=== PATIENT | male | born 1960 | race Caucasian/White ===

== ENCOUNTER → 2016-12-09 | Outpatient (CLI) | payer BC ==
[2016-12-09 16:09] VITALS: BP 150/101; PULSE 71; TEMP 98.2; BMI 42.7
--- NOTE | 2016-12-09 16:55 | P.HPBAR ---
Bariatric H&P - History & Physicial H&P Date: 12/09/16 History & Physicial: Visit/CC: follow up visit Patient initial contact: Initial weight: Initial weight in pounds: Height: 6 ft 5 in Initial BMI: Last weight: Current weight: 163.52 kg Current weight in pounds: 360.50 Current BMI: 42.7 Henning body weight (based on NIH guidelines): 94.347 kg Excess body weight loss: The patient is a 56 year-old M who presents for Bariatric Assessment. The patient presents today for lab band follow. Patient has a known gastric prolapse. He was seen in 2011. The patient failed to follow-up. He has regained a significant amount of weight since his band was emptied. Initially he weighed 35 at the time of his LAP-BAND surgery. He went down to 265 pounds. At the time of his prolapse he weighed 265 pounds. He now weighs 360 pounds. Patient wishes to have his band removed and convert to sleeve gastrectomy. Past Medical History History of Any Multi-Drug Resistant Organisms: None Reported Smoking Status: Never smoker Surgical - Exam Vital Signs Temp Pulse BP 98.2 F 71 150/101 12/09/16 16:04 12/09/16 16:04 12/09/16 16:04 - General well developed, no distress - Eyes PERRL - ENT normal pinna - Neck no masses - Respiratory normal expansion - Cardiovascular Rhythm: regular - Abdomen Abdomen: soft, non tender Bariatric Assessment & Plan Plan: Patient and myself elected discussion regarding sleeve gastrectomy. We went over the risks and benefits of procedure. Patient be scheduled for removal of his LAP-BAND due to gastric prolapse. We will then attempt to obtain insurance authorization for sleeve gastrectomy. Bariatric Checklist Checklist: Plan: Checklist: EGD: 1. Hiatal hernia: 2. H. Pylori: HgbA1c: Vitamin D: Smoking: Never smoker Primary care physician referral: olinda olmstead Psychiatry clearance: Cardiology clearance: Sleep study: Diet journal: VTE risk score: VTE risk level: Rehab needs at discharge:
== END | disposition home or self-care (01) ==
LOC: BARWHC3 13:06
PROVIDERS: ATTEND Surgery
DX: E66.01 Morbid (severe) obesity due to excess calories (principal)
CPT/HCPCS: 99211

== ENCOUNTER → 2016-12-20 | Outpatient (CLI) | payer BC ==
[2016-12-20 07:15] LABS: EKG EKG PERFORMED
[2016-12-20 07:48] LABS: ALT 39 U/L (21-72); AST 19 U/L (17-59); Alkaline Phosphatase 75 U/L (38-126); Anion Gap 12 mmol/L; Blood Urea Nitrogen 25 mg/dL (9-20); Calcium 9.3 mg/dL (8.4-10.2); Carbon Dioxide 27 mmol/L (22-30); Chloride 102 mmol/L (98-107); Glucose 208 mg/dL (74-99); Non-African American GFR(MDRD) 56 (>60 ml/min/1.73 sqM); Potassium 4.6 mmol/L (3.5-5.1); Sodium 141 mmol/L (137-145); Total Protein 7.7 g/dL (6.3-8.2)
[2016-12-20 07:50] LABS: Basophils % (A) 1 %; CH 31.1; CHCM 33.4; Eosinophils # (A) 0.3 k/uL (0-0.7); Eosinophils % (A) 4 %; HCT 42.1 % (39.0-53.0); HDW 2.32; Luc # (Auto) 0.11; Luc % (Auto) 2; Lymphocytes # (A) 2.2 k/uL (1.0-4.8); Lymphocytes % (A) 33 %; MCH 31.2 pg (25.0-35.0); MCHC 33.3 g/dL (31.0-37.0); MCV 93.6 fL (80.0-100.0); Mean Platelet Volume 8.3; Monocytes # (A) 0.5 k/uL (0-1.0); Monocytes % (A) 7 %; Neutrophils # (A) 3.7 k/uL (1.3-7.7); Neutrophils % (A) 54 %; RDW 13.5 % (11.5-15.5); WBC 6.8 k/uL (3.8-10.6); WBC (Perox) 7.16
== END | disposition home or self-care (01) ==
LOC: LABPAT 06:59
PROVIDERS: ATTEND Surgery
DX: Z01.810 Encounter for preprocedural cardiovascular examination (principal)
CPT/HCPCS: 80053; 85025; 93005

== ENCOUNTER 2016-12-23 09:31 | Day surgery (SDC) | payer BC ==
[2016-12-19 09:02] VITALS: BMI 41.5
[~2016-12-23 09:31] MED LIST: HYDROmorphone 1 MG/ML 1 ML SYRINGE IVP PRN; LACTATED RINGERS 1,000 ML IV SCH; MIDAZOLAM 2 MG/2 ML VIAL IV PRN; ONDANSETRON 4 MG/2 ML VIAL IVP ONE; SCOPOLAMINE 1.5MG/72HR PATCH TRANSDERM ONE; ceFAZolin 3 GM in SODIUM CHLORIDE 0.9% 100 ML IVPB ONE
[2016-12-23] MEDS ORDERED: LIDOCAINE 1% 20 ML VIAL (10MG/ML) FOR IV START INTRADERMA ONE (10:16)
--- NOTE | 2016-12-23 10:32 | P.GSHP ---
History of Present Illness H&P Date: 12/23/16 Chief Complaint: GERD, dysphagia gastric prolapse of LAP-BAND This a 56-year-old male who had LAP-BAND surgery performed several years ago. Patient has a gastric prolapse causing GERD and dysphagia. Presents today for removal of LAP-BAND device. Past Medical History Past Medical History: Atrial Fibrillation, Diabetes Mellitus, Hypertension, Sleep Apnea/CPAP/BIPAP Additional Past Medical History / Comment(s): use cpap,hx gastric prolapse History of Any Multi-Drug Resistant Organisms: MRSA Date of last positivie culture/infection: April MDRO Source:: rt chin Past Surgical History: Bariatric Surgery, Orthopedic Surgery, Tonsillectomy Additional Past Surgical History / Comment(s): LEFT KNEE REPLACEMENT, RIGHT HIP REPLACEMENT, LAP BAND SURGERY 2003 Past Anesthesia/Blood Transfusion Reactions: No Reported Reaction Past Psychological History: No Psychological Hx Reported Smoking Status: Never smoker Past Alcohol Use History: None Reported Past Drug Use History: None Reported - Past Family History Mother Family Medical History: No Reported History Father Family Medical History: Cancer Additional Family Medical History / Comment(s): lung Medications and Allergies Home Medications Medication Instructions Recorded Confirmed Type Carvedilol 25 mg PO BID 12/10/16 12/19/16 History Insulin Glargine [Lantus] 28 unit SQ HS 12/10/16 12/23/16 History Levothyroxine Sodium [Synthroid] 75 mcg PO QAM 12/10/16 12/19/16 History Losartan/Hydrochlorothiazide 1 tab PO QAM 12/10/16 12/19/16 History [Losartan-Hctz 100-12.5 mg Tab] Rivaroxaban [Xarelto] 20 mg PO DAILY 12/10/16 12/19/16 History Simvastatin [Zocor] 20 mg PO BID 12/10/16 12/23/16 History metFORMIN HCL [Glucophage] 500 mg PO BID 12/10/16 12/19/16 History Allergies Allergy/AdvReac Type Severity Reaction Status Date / Time No Known Allergies Allergy Verified 12/19/16 08:53 Surgical - Exam Vital Signs Temp Pulse Resp BP Pulse Ox 97.9 F 81 18 135/84 98 12/23/16 10:22 12/23/16 10:22 12/23/16 10:22 12/23/16 10:22 12/23/16 10:22 - General well developed, no distress - Eyes PERRL - ENT normal pinna - Neck no masses - Respiratory normal expansion - Cardiovascular Rhythm: regular - Abdomen Abdomen: soft, non tender Assessment and Plan Plan: GERD, dysphagia gastric prolapse. We'll perform laparoscopic removal of LAP- BAND system.
[2016-12-23 10:33] LABS: Glucose,Whole Blood 125 mg/dL (75-99)
[2016-12-23] MEDS ORDERED: ENOXAPARIN 40 MG/0.4 ML SYRINGE SQ ONE (10:35)
[2016-12-23] MEDS ORDERED: ceFAZolin 2 GM in SODIUM CHLORIDE 0.9% 100 ML IVPB ONE (10:36)
[2016-12-23] MEDS ORDERED: SUCCINYLCHOLINE CHLORIDE VIAL 200 MG/10 ML VIAL IV ONE (11:09)
[2016-12-23] MEDS ORDERED: PROPOFOL 10 MG/ML 20 ML VIAL IV ONE (11:09)
[2016-12-23] MEDS ORDERED: GLYCOPYRROLATE 0.2 MG/ML 2 ML VIAL ONE (11:09)
[2016-12-23] MEDS ORDERED: fentaNYL (PF) 50 MCG/ML 2 ML AMP ONE (11:09)
[2016-12-23] MEDS ORDERED: ROCURONIUM BROMIDE 10 MG/ML 10 ML VIAL IV ONE (11:09)
[2016-12-23] MEDS ORDERED: ePHEDrine 50 MG/ML 1 ML AMP ONE (11:09)
[2016-12-23] MEDS ORDERED: NEOSTIGMINE 1 MG/ML 10 ML VIAL ONE (11:09)
[2016-12-23] MEDS ORDERED: LIDOCAINE 1% INJ 10MG/ML (20 ML MDV) ONE (11:09)
[2016-12-23] MEDS ORDERED: MIDAZOLAM 2 MG/2 ML VIAL ONE (11:09)
[2016-12-23] MEDS ORDERED: BUPIVACAIN-EPI 0.25%-1:200,000 30 ML VIAL SQ ONE (11:36)
[2016-12-23] MEDS ORDERED: LACTATED RINGERS 1,000 ML IV ONE (11:38)
[2016-12-23 12:35] VITALS: TEMP 97
--- NOTE | 2016-12-23 12:40 | P.OP ---
Date of Procedure: 12/23/16 Preoperative Diagnosis: Gastric prolapse Postoperative Diagnosis: Dysphagia Gastric prolapse Procedure(s) Performed: Laparoscopic removal of LAP-BAND system Anesthesia: SNOW Surgeon: Vernon Salomon Estimated Blood Loss (ml): 5 Pathology: none sent Condition: stable Disposition: PACU Description of Procedure: The patient was placed in the operative table in supine position. He received general anesthesia. His abdomen was prepped and draped after he is placed in dorsal 5 position. The skin incision sites were anesthetized 1% local Xylocaine. The skin was incised and the port site and then using blunt and sharp dissection with cautery the LAP-BAND port was dissected free from the subcu tissues. Next using a 5 mm blade less trocar under direct visualization panel cavity was entered. Upon entering pelvic cavity the abdomen was insufflated with CO2. After adequate insufflation the laparoscope placed back the pleural cavity. Next a fibrillar trocar is placed left epigastric and left lateral lobe liver was retracted. The initial fibrillar trocar was exchanged for a 15 mm trocar. A 5 mm trochars placed in the left epigastric. And then another 5 mm trochars placed the right lateral and left lateral position. The adhesions Dorie device were lysed using electrocautery and sharp dissection. The anterior gastric wall plication was taken down with sharp dissection. The lap band buckle was then dissected free and then LAP-BAND was cut and withdrawn from around stomach. The LAP-BAND device was removed and Brought out through the 15 mm trocar site. Some was inspected. There is no incision any injury or bleeding to the stomach. The trochars withdrawn. The skin incision sites are closed with 3-0 Monocryl suture. Dermabond was applied. Patient top procedure well and sent to recovery in stable condition.
[2016-12-23 12:47] LABS: Glucose,Whole Blood 117 mg/dL (75-99)
[2016-12-23] MEDS ORDERED: HYDROcodone/APAP 7.5-325MG 1 EACH TAB PO ONE (13:24)
[2016-12-23 13:58] VITALS: RESP 16
[2016-12-23 14:01] VITALS: BP 116/59; PULSE 68
== END 2016-12-23 14:33 | disposition home or self-care (01) ==
LOC: OR 09:31
PROVIDERS: ATTEND Surgery
DX: K95.09 Other complications of gastric band procedure (principal); R13.10 Dysphagia, unspecified; K21.9 Gastro-esophageal reflux disease without esophagitis; I48.91 Unspecified atrial fibrillation; I10 Essential (primary) hypertension; E11.9 Type 2 diabetes mellitus without complications; E07.9 Disorder of thyroid, unspecified; G47.33 Obstructive sleep apnea (adult) (pediatric); Z99.89 Dependence on other enabling machines and devices; Z79.01 Long term (current) use of anticoagulants; Z79.84 Long term (current) use of oral hypoglycemic drugs; Z79.4 Long term (current) use of insulin; Z79.899 Other long term (current) drug therapy; Z86.14 Personal history of Methicillin resistant Staphylococcus aureus infection
CPT/HCPCS: 43772; J2250; J0330; J2710; J0690; J2405; J2001; J1650; J3010; J2704

== ENCOUNTER → 2016-12-30 | Outpatient (CLI) | payer BC ==
[2016-12-30 15:09] VITALS: BP 169/88; PULSE 85; RESP 16; TEMP 98.2; BMI 43.4
--- NOTE | 2016-12-30 16:34 | P.HPBAR ---
Bariatric H&P - History & Physicial H&P Date: 12/30/16 History & Physicial: Visit/CC: Band Removal/Pursuing sleeve Patient initial contact: Initial weight: 174.633 kg Initial weight in pounds: 385.00 Height: 6 ft 5 in Initial BMI: 45.6 Last weight: Current weight: 166.468 kg Current weight in pounds: 367.00 Current BMI: 43.4 Warren body weight (based on NIH guidelines): 94.347 kg Excess body weight loss: 10.1% The patient is a 56 year-old M who presents for Bariatric Assessment. Patient is status post removal of LAP-BAND system. He wishes to be scheduled for sleeve gastrectomy. The patient states his GERD and dysphagia improved since her band was removed. He's had an issue with gastric prolapse the past. Past Medical History Past Medical History: Atrial Fibrillation, Diabetes Mellitus, Hypertension, Sleep Apnea/CPAP/BIPAP Additional Past Medical History / Comment(s): use cpap,hx gastric prolapse History of Any Multi-Drug Resistant Organisms: MRSA Year Discovered:: April MDRO Source:: rt pace Past Surgical History: Bariatric Surgery, Orthopedic Surgery, Tonsillectomy Additional Past Surgical History / Comment(s): LEFT KNEE REPLACEMENT, RIGHT HIP REPLACEMENT, LAP BAND SURGERY 2003 Past Anesthesia/Blood Transfusion Reactions: No Reported Reaction Past Psychological History: No Psychological Hx Reported Smoking Status: Never smoker Past Alcohol Use History: None Reported Past Drug Use History: None Reported - Past Family History Mother Family Medical History: No Reported History Father Family Medical History: Cancer Additional Family Medical History / Comment(s): lung Surgical - Exam Vital Signs Temp Pulse Resp BP 98.2 F 85 16 169/88 12/30/16 15:05 12/30/16 15:05 12/30/16 15:05 12/30/16 15:05 - General well developed, no distress - Eyes PERRL - ENT normal pinna - Neck no masses - Respiratory normal expansion - Cardiovascular Rhythm: regular - Abdomen Abdomen: soft, non tender Bariatric Assessment & Plan Plan: Morbid obesity. Patient will be scheduled for sleeve gastrectomy. We went over the risks and benefits of the procedure. We did discuss the risk of gastric staple line disruption. Patient is aware that if this happens he will need to have a surgical drain placed as well a receiving TPN. Patient will be scheduled for gastric sleeve surgery sometime next month. Bariatric Checklist Checklist: Plan: Checklist: EGD: 1. Hiatal hernia: 2. H. Pylori: HgbA1c: Vitamin D: Smoking: Never smoker Primary care physician referral: dr olmstead Psychiatry clearance: Cardiology clearance: Sleep study: Diet journal: VTE risk score: VTE risk level: Rehab needs at discharge:
== END | disposition home or self-care (01) ==
LOC: BARWHC3 14:13
PROVIDERS: ATTEND Surgery
DX: Z48.815 Encounter for surgical aftercare following surgery on the digestive system (principal); E66.01 Morbid (severe) obesity due to excess calories; Z68.41 Body mass index [BMI] 40.0-44.9, adult; Z98.84 Bariatric surgery status; K21.9 Gastro-esophageal reflux disease without esophagitis; R13.10 Dysphagia, unspecified; G47.33 Obstructive sleep apnea (adult) (pediatric); Z99.89 Dependence on other enabling machines and devices; Z86.14 Personal history of Methicillin resistant Staphylococcus aureus infection
CPT/HCPCS: 99211

== ENCOUNTER 2017-01-03 07:12 | Day surgery (SDC) | payer BC ==
[2017-01-02 08:16] VITALS: BMI 40.3
[~2017-01-03 07:12] MED LIST changes: -HYDROmorphone 1 MG/ML 1 ML SYRINGE IVP PRN; +LACTATED RINGERS 1,000 ML IV ONE; -MIDAZOLAM 2 MG/2 ML VIAL IV PRN; -ONDANSETRON 4 MG/2 ML VIAL IVP ONE; -SCOPOLAMINE 1.5MG/72HR PATCH TRANSDERM ONE; -ceFAZolin 3 GM in SODIUM CHLORIDE 0.9% 100 ML IVPB ONE
[2017-01-03 07:32] VITALS: RESP 16; TEMP 97
[2017-01-03 07:35] LABS: Glucose,Whole Blood 140 mg/dL (75-99)
[2017-01-03] MEDS ORDERED: PROPOFOL 10 MG/ML 20 ML VIAL IV ONE ×2 (07:43→08:29)
[2017-01-03] MEDS ORDERED: LIDOCAINE 1% INJ 10MG/ML (20 ML MDV) ONE (07:43)
--- NOTE | 2017-01-03 07:51 | P.GSHP ---
History of Present Illness H&P Date: 01/03/17 Chief Complaint: History of GERD This is a 56-year-old male who presents today for EGD. Patient has history of GERD and gastric prolapse. His LAP-BAND has been removed. He is undergoing workup for sleeve gastrectomy. Patient presents today for EGD. - Constitutional Constitutional: Reports as per HPI Past Medical History Past Medical History: Atrial Fibrillation, Diabetes Mellitus, Hypertension, Sleep Apnea/CPAP/BIPAP Additional Past Medical History / Comment(s): use cpap,hx gastric prolapse History of Any Multi-Drug Resistant Organisms: MRSA Date of last positivie culture/infection: April MDRO Source:: rt chin Past Surgical History: Bariatric Surgery, Orthopedic Surgery, Tonsillectomy Additional Past Surgical History / Comment(s): LEFT KNEE REPLACEMENT, RIGHT HIP REPLACEMENT, LAP BAND SURGERY 2003, LAP BAND REMOVAL Past Anesthesia/Blood Transfusion Reactions: No Reported Reaction Past Psychological History: No Psychological Hx Reported Smoking Status: Never smoker Past Alcohol Use History: None Reported Past Drug Use History: None Reported - Past Family History Mother Family Medical History: No Reported History Father Family Medical History: Cancer Additional Family Medical History / Comment(s): lung Medications and Allergies Home Medications Medication Instructions Recorded Confirmed Type Carvedilol 25 mg PO BID 12/10/16 01/03/17 History Insulin Glargine [Lantus] 28 unit SQ HS 12/10/16 01/03/17 History Levothyroxine Sodium [Synthroid] 75 mcg PO QAM 12/10/16 01/03/17 History Losartan/Hydrochlorothiazide 1 tab PO QAM 12/10/16 01/03/17 History [Losartan-Hctz 100-12.5 mg Tab] Rivaroxaban [Xarelto] 20 mg PO DAILY 12/10/16 01/02/17 History Simvastatin [Zocor] 20 mg PO BID 12/10/16 01/03/17 History metFORMIN HCL [Glucophage] 500 mg PO BID 12/10/16 01/03/17 History Allergies Allergy/AdvReac Type Severity Reaction Status Date / Time No Known Allergies Allergy Verified 01/03/17 07:24 Surgical - Exam Vital Signs Temp Pulse Resp BP Pulse Ox 97.0 F L 77 16 122/79 95 01/03/17 07:27 01/03/17 07:27 01/03/17 07:27 01/03/17 07:27 01/03/17 07:27 - General well developed, no distress - Eyes PERRL - ENT normal pinna - Neck no masses - Respiratory normal expansion - Cardiovascular Rhythm: regular - Abdomen Abdomen: soft, non tender Results - Labs Abnormal Lab Results - Last 24 Hours (Table) 01/03/17 Range/Units 07:34 POC Glucose (mg/dL) 140 H (75-99) mg/dL Assessment and Plan Plan: GERD. We'll perform EGD.
--- NOTE | 2017-01-03 08:01 | P.OP ---
Date of Procedure: 01/03/17 Preoperative Diagnosis: GERD Postoperative Diagnosis: Gastritis Procedure(s) Performed: The patient's placed on the endoscopy table in the lateral position. He received IV sedation. The gastroscope some placed oropharynx passed in the esophagus and into the stomach. Scope was then placed through the pylorus. The first and second portion of the duodenum appeared normal. The scope was then brought back the antrum and this appeared mildly inflamed. A biopsies performed. Scope was unretroflexed and remainder stomach appeared normal. GE junction was at 40 cm. The distal esophagus. Normal. The proximal esophagus. Normal. Scope was withdrawn for patient.
[2017-01-03 08:21] VITALS: BP 126/83; PULSE 78
== END 2017-01-03 08:40 | disposition home or self-care (01) ==
LOC: ORWHC2ENDO 07:12
PROVIDERS: ATTEND Surgery
DX: K21.9 Gastro-esophageal reflux disease without esophagitis (principal); K29.50 Unspecified chronic gastritis without bleeding; E11.9 Type 2 diabetes mellitus without complications; I10 Essential (primary) hypertension; I48.91 Unspecified atrial fibrillation; I49.9 Cardiac arrhythmia, unspecified; G47.33 Obstructive sleep apnea (adult) (pediatric); E66.01 Morbid (severe) obesity due to excess calories; Z79.4 Long term (current) use of insulin; Z79.01 Long term (current) use of anticoagulants; Z79.84 Long term (current) use of oral hypoglycemic drugs; Z79.899 Other long term (current) drug therapy; Z98.84 Bariatric surgery status
CPT/HCPCS: 88305; 88342; 43239; J2001; J2704

== ENCOUNTER → 2017-01-27 | Outpatient (CLI) | payer BC ==
[2017-01-27 13:08] VITALS: BMI 43.9
== END | disposition home or self-care (01) ==
LOC: BARWHC3 08:50
PROVIDERS: ATTEND Surgery
DX: Z71.3 Dietary counseling and surveillance (principal); E66.01 Morbid (severe) obesity due to excess calories; Z68.41 Body mass index [BMI] 40.0-44.9, adult
CPT/HCPCS: 97804

== ENCOUNTER → 2017-02-12 | Outpatient (CLI) | payer BC ==
[2017-02-12 07:06] LABS: EKG EKG PERFORMED
[2017-02-12 08:09] LABS: Basophils # (A) 0.1 k/uL (0-0.2); Basophils % (A) 1 %; CH 31.4; Eosinophils # (A) 0.3 k/uL (0-0.7); Eosinophils % (A) 5 %; HCT 42.2 % (39.0-53.0); HDW 2.36; HGB 13.6 gm/dL (13.0-17.5); Luc # (Auto) 0.23; Luc % (Auto) 3; Lymphocytes # (A) 2.3 k/uL (1.0-4.8); Lymphocytes % (A) 33 %; MCH 30.8 pg (25.0-35.0); MCHC 32.3 g/dL (31.0-37.0); MCV 95.6 fL (80.0-100.0); Mean Platelet Volume 7.6; Monocytes # (A) 0.4 k/uL (0-1.0); Monocytes % (A) 6 %; Neutrophils # (A) 3.6 k/uL (1.3-7.7); Neutrophils % (A) 52 %; RBC 4.41 m/uL (4.30-5.90); WBC 6.9 k/uL (3.8-10.6); WBC (Perox) 7.11
[2017-02-12 08:32] LABS: ALT 32 U/L (21-72); AST 25 U/L (17-59); Alkaline Phosphatase 71 U/L (38-126); Anion Gap 12 mmol/L; Blood Urea Nitrogen 29 mg/dL (9-20); Calcium 9.4 mg/dL (8.4-10.2); Carbon Dioxide 24 mmol/L (22-30); Chloride 105 mmol/L (98-107); Glucose 113 mg/dL (74-99); Non-African American GFR(MDRD) 44 (>60 ml/min/1.73 sqM); Phosphorous 4.2 mg/dL (2.5-4.5); Potassium 4.9 mmol/L (3.5-5.1); Sodium 141 mmol/L (137-145); Total Protein 7.7 g/dL (6.3-8.2)
== END ==
LOC: LABPAT 06:48
PROVIDERS: ATTEND Surgery
DX: Z01.818 Encounter for other preprocedural examination (principal)
CPT/HCPCS: 80053; 84100; 85025; 93005

== ENCOUNTER 2017-02-13 06:24 | Inpatient (IN) | payer BC ==
[~2017-02-13 06:24] MED LIST changes: +DEXAMETHASONE SOD PHOSPHATE 10 MG/ML 1 ML VIAL IV ONE; +HYDROmorphone 1 MG/ML 1 ML SYRINGE IVP PRN; -LACTATED RINGERS 1,000 ML IV ONE; +LIDOCAINE 1% 20 ML VIAL (10MG/ML) FOR IV START INTRADERMA PRN; +MIDAZOLAM 2 MG/2 ML VIAL IV PRN; +ONDANSETRON 4 MG/2 ML VIAL IVP ONE; +SCOPOLAMINE 1.5MG/72HR PATCH TRANSDERM ONE; +ceFAZolin 3 GM in SODIUM CHLORIDE 0.9% 100 ML IVPB ONE
[2017-02-13] MEDS ORDERED: METHYLENE BLUE 50 MG/10 ML AMPUL MISCELLANE ONE (07:13)
[2017-02-13 07:20] LABS: Glucose,Whole Blood 161 mg/dL (75-99)
[2017-02-13] MEDS ORDERED: HEPARIN SODIUM,PORCINE 5,000 UNIT/ML 1 ML VIAL SQ ONE (07:42)
--- NOTE | 2017-02-13 07:44 | P.GSHP ---
History of Present Illness H&P Date: 02/13/17 Chief Complaint: Morbid obesity BMI 43 This is a 56-year-old male who presents today for laparoscopic sleeve gastrectomy. Patient had a previous LAP-BAND which developed a gastric prolapse. Patient has LAP-BAND removed several weeks ago. He presents today for sleeve gastrectomy. Patient reversed surgery including conversion to the open procedure and injury to the stomach, liver and spleen. He is also aware of gastric staple line disruption, including perforation. - Constitutional Constitutional: Reports as per HPI Past Medical History Past Medical History: Atrial Fibrillation, Diabetes Mellitus, Hypertension, Sleep Apnea/CPAP/BIPAP Additional Past Medical History / Comment(s): USES C-PAP. History of Any Multi-Drug Resistant Organisms: MRSA Date of last positivie culture/infection: April MDRO Source:: rt ALBRIGHT Past Surgical History: Bariatric Surgery, Orthopedic Surgery, Tonsillectomy Additional Past Surgical History / Comment(s): LEFT KNEE REPLACEMENT, RIGHT HIP REPLACEMENT, LAP BAND SURGERY 2003, LAP BAND REMOVAL, EGD Past Anesthesia/Blood Transfusion Reactions: No Reported Reaction Past Psychological History: No Psychological Hx Reported Smoking Status: Never smoker Past Alcohol Use History: None Reported Past Drug Use History: None Reported - Past Family History Mother Family Medical History: No Reported History Father Family Medical History: Cancer Additional Family Medical History / Comment(s): lung Medications and Allergies Home Medications Medication Instructions Recorded Confirmed Type Carvedilol 25 mg PO BID 12/10/16 02/10/17 History Insulin Glargine [Lantus] 28 unit SQ 12/10/16 02/10/17 History Levothyroxine Sodium [Synthroid] 75 mcg PO QAM 12/10/16 02/10/17 History Losartan/Hydrochlorothiazide 1 tab PO QAM 12/10/16 02/10/17 History [Losartan-Hctz 100-12.5 mg Tab] Rivaroxaban [Xarelto] 20 mg PO DAILY 12/10/16 02/10/17 History Simvastatin [Zocor] 20 mg PO HS 12/10/16 02/10/17 History metFORMIN HCL [Glucophage] 500 mg PO BID 12/10/16 02/10/17 History Sotalol [Betapace] 80 mg PO BID 02/05/17 02/10/17 History Multivitamin/Iron/Folic Acid 1 each PO DAILY 02/10/17 02/10/17 History [Centrum Complete Multivit Tab] Allergies Allergy/AdvReac Type Severity Reaction Status Date / Time No Known Allergies Allergy Verified 02/13/17 06:37 Surgical - Exam Vital Signs Temp Pulse Resp BP Pulse Ox 97.8 F 77 16 136/93 97 02/13/17 06:33 02/13/17 06:33 02/13/17 06:33 02/13/17 06:33 02/13/17 06:33 - General well developed, no distress - Eyes PERRL - ENT normal pinna - Neck no masses - Respiratory normal expansion - Cardiovascular Rhythm: regular - Abdomen Abdomen: soft, non tender Results - Labs Abnormal Lab Results - Last 24 Hours (Table) 02/13/17 Range/Units 06:59 POC Glucose (mg/dL) 161 H (75-99) mg/dL Assessment and Plan Plan: Morbid obesity History of gastric prolapse with removal LAP-BAND. Patient will undergo laparoscopic sleeve gastrectomy.
[2017-02-13] MEDS ORDERED: PROPOFOL 10 MG/ML 20 ML VIAL IV ONE (07:50)
[2017-02-13] MEDS ORDERED: ePHEDrine 50 MG/ML 1 ML AMP ONE (07:50)
[2017-02-13] MEDS ORDERED: SUCCINYLCHOLINE CHLORIDE VIAL 200 MG/10 ML VIAL IV ONE (07:50)
[2017-02-13] MEDS ORDERED: GLYCOPYRROLATE 0.2 MG/ML 2 ML VIAL ONE (07:50)
[2017-02-13] MEDS ORDERED: PHENYLEPHRINE-0.9% NACL SYG 1 MG/10 ML SYRINGE ONE (07:50)
[2017-02-13] MEDS ORDERED: ACETAMINOPHEN IV (For NPO) 1,000 MG/100 ML VIAL ONE (07:50)
[2017-02-13] MEDS ORDERED: MIDAZOLAM 2 MG/2 ML VIAL ONE (07:50)
[2017-02-13] MEDS ORDERED: HYDROmorphone (PF) 1 MG/ML ONE (07:50)
[2017-02-13] MEDS ORDERED: METHYLENE BLUE 50 MG/10 ML AMPUL ONE (07:50)
[2017-02-13] MEDS ORDERED: ROCURONIUM BROMIDE 10 MG/ML 10 ML VIAL IV ONE (07:50)
[2017-02-13] MEDS ORDERED: NEOSTIGMINE 1 MG/ML 10 ML VIAL ONE (07:50)
[2017-02-13] MEDS ORDERED: LIDOCAINE 1% INJ 10MG/ML (20 ML MDV) ONE (07:50)
[2017-02-13] MEDS ORDERED: BUPIVACAIN-EPI 0.25%-1:200,000 30 ML VIAL SQ ONE ×2 (08:23)
[2017-02-13] MEDS ORDERED: LACTATED RINGERS 1,000 ML IV ONE (08:36)
--- NOTE | 2017-02-13 09:59 | P.OP ---
Date of Procedure: 02/13/17 Preoperative Diagnosis: Morbid obesity Postoperative Diagnosis: Morbid obesity Adhesions Procedure(s) Performed: Lysis of adhesions Laparoscopic sleeve gastrectomy Anesthesia: SNOW Surgeon: Vernon Salomon Estimated Blood Loss (ml): 50 Pathology: other (Gastric remnant) Condition: stable Disposition: PACU Description of Procedure: The patient's placed in the operative table in the supine position. He received general anesthesia and then was placed in dorsal lithotomy position. His abdomen was prepped and draped in usual sterile fashion. The abdomen was entered using a 5 mm blade less trocar in the left periumbilical area and then after adequate insufflation the laparoscope was placed back into the pleural cavity. Next a 5 mm trocar was placed in the right epigastric position left lateral position and then right lateral position. Another 5 mm trocar was placed in the left epigastric area and then a 15 mm trocar was placed in the supraumbilical position. An orogastric tube was placed by the SHIPPING/RECEIVING CLERK. The SHIPPING/RECEIVING CLERK had some difficulty placing the orogastric tube but eventually was position in the stomach. The left lateral lobe liver was retracted. There were adhesions between the stomach and left lateral lobe of the liver and these were lysed using sharp dissection. There were also adhesions to the anterior abdominal wall and these were lysed with sharp dissection. Next the greater curvature of the stomach was seen and then using the Harmonic scissors the greater curvature was dissected. The short gastric vessels were divided using Harmonic scissors. The dissection occurred approximately 5 cm from the pylorus and was extended all the way to the left argelia. After the entire greater curvature stomach was mobilized. A 40-Turkish bougie dilator was placed oropharynx passed in the esophagus and into the stomach. Using the powered echelon stapler with buttress material sequential firings of the stapler were performed and the gastrectomy was completed. The gastric remnant was then brought up through the 15 mm trocar site. And then the stomach was attempted the insufflated with methylene blue normal saline. The SHIPPING/RECEIVING CLERK cannot passed the OG tube. Several times made to pass the NG tube however due to the patient's anatomy it was not passing into the stomach. At this point the abdomen was irrigated. There is no bleeding seen. The gastric staple line was inspected. There is no evidence of any injury to the stomach. At this point the trochars withdrawn. Skin was closed interrupted 3-0 Monocryl suture. A Vicryl was used to close the fascial defect at the 15 mm trocar site. Patient was sent to recovery in stable condition.
[2017-02-13] MEDS ORDERED: NALOXONE 0.4 MG/ML 1 ML VIAL IV PRN (10:00)
[2017-02-13 10:19] LABS: Glucose,Whole Blood 221 mg/dL (75-99)
[2017-02-13 11:17] LABS: Glucose,Whole Blood 193 mg/dL (75-99)
[2017-02-13] MEDS: KETOROLAC 30 MG/ML 1 ML VIAL IVP SCH ×2 (11:42→18:16)
[2017-02-13] MEDS: 0.9% NACL WITH KCL 20 MEQ/L 1,000 ML IV SCH ×2 (11:42→19:49)
[2017-02-13] MEDS: AMPICILLIN-SULBACTAM 3 GM in SODIUM CHLORIDE 0.9% 100 ML IVPB SCH ×2 (11:46→18:16)
[2017-02-13] MEDS: ONDANSETRON 4 MG/2 ML VIAL IVP PRN ×2 (11:52→19:13)
[2017-02-13] MEDS: ALBUTEROL NEBULIZED 2.5 MG/3 ML INHALATION SCH ×3 (13:30→19:30)
[2017-02-13] MEDS: hydrALAZINE HCL 20 MG/ML 1 ML VIAL IVP PRN ×2 (15:13→19:48)
[2017-02-13] MEDS: HYDROmorphone 1 MG/ML 1 ML SYRINGE IVP PRN ×2 (15:18→19:31)
[2017-02-13 16:47] LABS: Glucose,Whole Blood 184 mg/dL (75-99)
[2017-02-14 00:05] LABS: Glucose,Whole Blood 133 mg/dL (75-99)
[2017-02-14] MEDS: KETOROLAC 30 MG/ML 1 ML VIAL IVP SCH ×3 (00:06→12:43)
[2017-02-14] MEDS: INSULIN LISPRO (humaLOG) 300 UNIT/3 ML VIAL SQ SCH ×3 (00:07→12:47)
[2017-02-14] MEDS: 0.9% NACL WITH KCL 20 MEQ/L 1,000 ML IV SCH ×3 (06:01→10:45)
[2017-02-14 06:02] LABS: Glucose,Whole Blood 122 mg/dL (75-99)
[2017-02-14 07:40] LABS: Basophils % (A) 0 %; CH 31.6; Eosinophils # (A) 0.1 k/uL (0-0.7); Eosinophils % (A) 1 %; HCT 39.4 % (39.0-53.0); HDW 2.33; HGB 12.7 gm/dL (13.0-17.5); Luc # (Auto) 0.15; Luc % (Auto) 2; Lymphocytes # (A) 1.4 k/uL (1.0-4.8); Lymphocytes % (A) 14 %; MCH 30.9 pg (25.0-35.0); MCHC 32.1 g/dL (31.0-37.0); MCV 96.2 fL (80.0-100.0); Mean Platelet Volume 7.7; Monocytes # (A) 0.5 k/uL (0-1.0); Monocytes % (A) 5 %; Neutrophils # (A) 7.6 k/uL (1.3-7.7); Neutrophils % (A) 78 %; RDW 13.2 % (11.5-15.5); WBC 9.8 k/uL (3.8-10.6); WBC (Perox) 10.58
[2017-02-14] MEDS: ALBUTEROL NEBULIZED 2.5 MG/3 ML INHALATION SCH ×3 (07:58→14:51)
[2017-02-14 08:05] LABS: Calcium 8.7 mg/dL (8.4-10.2); Potassium 4.7 mmol/L (3.5-5.1)
[2017-02-14] MEDS ORDERED: 0.9% NACL WITH KCL 20 MEQ/L 1,000 ML IV SCH (09:00)
[2017-02-14] MEDS ORDERED: ENOXAPARIN 40 MG/0.4 ML SYRINGE SQ SCH (09:00)
[2017-02-14] MEDS ORDERED: PANTOPRAZOLE 40 MG/10 ML VIAL IV SCH (09:00)
--- NOTE | 2017-02-14 10:46 | FL ---
EXAMINATION TYPE: FL UGI DATE OF EXAM: 02/14/2017 10:31 AM LIMITED UGI: CLINICAL HISTORY: Morbid Obesity, gastric sleeve yesterday. History of lap band for about 10 years r emoved 1 month ago. TECHNIQUE: Limited UGI is performed utilizing 50 oz of Omnipaque 350. A total of 47 seconds of fluor oscopic time was utilized during procedure. COMPARISON: None. FINDINGS: The patient swallowed contrast without difficulty or delay. There is good flow of contrast along the course of the esophagus. Some contrast flows below diaphragmatic hiatus into irregular sha ped proximal stomach presumed product of lap band slippage. There is initial delay flow of contrast i nto the proximal gastric sleeve. There is reflux into dilated distal esophagus. Patient remains asymp tomatic. There is eventual flow of contrast through gastric sleeve and distal anastomosis into duoden al sweep. Patient remains asymptomatic. There is no evidence of contrast extravasation to suggest shan k. IMPRESSION: Mild to moderate obstruction at proximal portion of gastric sleeve but patient remains as ymptomatic. No leak noted.
[2017-02-14 11:14] VITALS: BMI 42.5
[2017-02-14 11:55] LABS: Glucose,Whole Blood 136 mg/dL (75-99)
[2017-02-14 12:31] LABS: Hemoglobin A1C 8.5 % (4.2-6.1)
[2017-02-14 14:54] VITALS: BP 153/92; PULSE 66; RESP 18; TEMP 98
--- NOTE | 2017-02-14 16:09 | P.DS ---
Providers Date of admission: 02/13/17 06:24 Expected date of discharge: 02/14/17 Attending physician: Vernon Salomon Consults: 02/13/17 10:00 Consult Physician Routine Consulting Provider: Freddie Light Consult Reason/Comments: Medical management Do you want consulting provider notified?: Yes Primary care physician: Stated None Hospital Course: Patient is a 56-year-old male with medical history significant for morbid obesity with previous lap band procedure which developed a gastric prolapse. Patient's lap band was removed 1 month ago and patient presented for elective laparoscopic sleeve gastrectomy. Patient underwent lysis of adhesions in addition to laparoscopic sleeve gastrectomy. Patient tolerated procedure well. Upper GI series post surgery with mild to moderate obstruction at proximal portion of gastric sleeve with no evidence of leak. No evidence of dysphagia. Patient had an uneventful postoperative course and was deemed stable for discharge to home with follow-up in the outpatient setting. Discharge diagnoses: 1. Morbid obesity 2. Status post laparoscopic sleeve gastrectomy and lysis of adhesions 3. History of lap band with gastric prolapse with removal of lap band one month ago. The above impression and plan have been discussed and directed by Dr. Salomon. Samir KEATING acting as scribe for Aime. Pertinent Studies: Upper GI series Procedures: Lysis of adhesions; laparoscopic sleeve gastrectomy Patient Condition at Discharge: Good Plan - Discharge Summary New Discharge Prescriptions: HYDROcodone/APAP 7.5-325MG [Canova 7.5-325] 1 tab PO Q6HR PRN #28 tab PRN Reason: Pain Omeprazole [PriLOSEC] 40 mg PO DAILY #30 capsule. Ondansetron Odt [Zofran ODT] 8 mg PO Q8HR #20 tab Sucralfate [Carafate] 1 gm PO ACHS #90 tablet Discharge Medication List Carvedilol 25 mg PO BID 12/10/16 [History] Insulin Glargine [Lantus] 28 unit SQ HS 12/10/16 [History] Levothyroxine Sodium [Synthroid] 75 mcg PO QAM 12/10/16 [History] Losartan/Hydrochlorothiazide [Losartan-Hctz 100-12.5 mg Tab] 1 tab PO QAM [History] Rivaroxaban [Xarelto] 20 mg PO DAILY 12/10/16 [History] Simvastatin [Zocor] 20 mg PO HS 12/10/16 [History] metFORMIN HCL [Glucophage] 500 mg PO BID 12/10/16 [History] Sotalol [Betapace] 80 mg PO BID 02/05/17 [History] Multivitamin/Iron/Folic Acid [Centrum Complete Multivit Tab] 1 tab PO DAILY [History] HYDROcodone/APAP 7.5-325MG [Canova 7.5-325] 1 tab PO Q6HR PRN #28 tab 02/14/17 [ Rx] Omeprazole [PriLOSEC] 40 mg PO DAILY #30 capsule. 02/14/17 [Rx] Ondansetron Odt [Zofran ODT] 8 mg PO Q8HR #20 tab 02/14/17 [Rx] Sucralfate [Carafate] 1 gm PO ACHS #90 tablet 02/14/17 [Rx] Follow up Appointment(s)/Referral(s): Blayne Dia MD [REFERRING] - 1 Week Vernon Salomon MD [STAFF PHYSICIAN] - 03/03/17 1:00 pm (F/U in bariatric center ) Patient Instructions/Handouts: Laparoscopic Sleeve Gastrectomy (DC) Activity/Diet/Wound Care/Special Instructions: No heavy lifting, pushing, or pulling items greater than 10 pounds. Bariatric diet as previously directed. No caffeinated beverages or straws. Shower daily, no soaking in bath tubs, pools, or hot tubs. No driving while taking pain medication. Notify surgeon with any signs or symptoms of infection, increased pain, or not tolerating diet. Discharge Disposition: HOME SELF-CARE
== END 2017-02-14 17:26 | disposition home or self-care (01) | DRG 620 ==
LOC: 2ORWHC 06:24 → 3SUR 10:00
PROVIDERS: ADMIT Surgery; ATTEND Surgery
PROC: 0DB64Z3 Excision of Stomach, Percutaneous Endoscopic Approach, Vertical (ICD-10-PCS; principal; 2017-02-13 07:40)
DX: E66.01 Morbid (severe) obesity due to excess calories (principal); I42.9 Cardiomyopathy, unspecified; I48.1 Persistent atrial fibrillation; I48.91 Unspecified atrial fibrillation; I10 Essential (primary) hypertension; Z96.652 Presence of left artificial knee joint; Z68.41 Body mass index [BMI] 40.0-44.9, adult; E11.9 Type 2 diabetes mellitus without complications; K66.0 Peritoneal adhesions (postprocedural) (postinfection); G47.33 Obstructive sleep apnea (adult) (pediatric); I25.10 Atherosclerotic heart disease of native coronary artery without angina pectoris; E03.9 Hypothyroidism, unspecified; E78.5 Hyperlipidemia, unspecified; M19.91 Primary osteoarthritis, unspecified site; Z96.641 Presence of right artificial hip joint; Z79.4 Long term (current) use of insulin; Z79.899 Other long term (current) drug therapy; Z79.01 Long term (current) use of anticoagulants; Z80.1 Family history of malignant neoplasm of trachea, bronchus and lung; Z16.24 Resistance to multiple antibiotics; Z86.19 Personal history of other infectious and parasitic diseases; Z86.14 Personal history of Methicillin resistant Staphylococcus aureus infection; Z87.19 Personal history of other diseases of the digestive system; Z98.84 Bariatric surgery status; Z83.3 Family history of diabetes mellitus; Z79.1 Long term (current) use of non-steroidal anti-inflammatories (NSAID)
CPT/HCPCS: 74240; 80051; 80053; 82310; 82565; 83036; 83735; 84100; 84520; 85025; 88307; 93005; 94640; 94660; 94760

== ENCOUNTER → 2017-02-24 | Outpatient (CLI) | payer BC ==
[2017-02-24 13:31] VITALS: BP 116/81; PULSE 67; RESP 14; TEMP 97.7; BMI 40.6
--- NOTE | 2017-02-24 15:47 | P.HPBAR ---
Bariatric H&P - History & Physicial H&P Date: 02/24/17 History & Physicial: Visit/CC: sleeve f/u (02/13/17) Patient initial contact: Initial weight: 174.633 kg Initial weight in pounds: 385.00 Height: 6 ft 5 in Initial BMI: 45.6 Last weight: Current weight: 155.673 kg Current weight in pounds: 343.20 Current BMI: 40.6 [place] body weight (based on NIH guidelines): 94.347 kg Excess body weight loss: 23.6% The patient is a 56 year-old M who presents for Bariatric Assessment. Patient rents today for sleeve gastrectomy follow-up. He is 2 weeks postoperative. He is doing quite well. He's had minimal complaints of pain. An is tolerating his diet. Past Medical History Past Medical History: Atrial Fibrillation, Diabetes Mellitus, Hypertension, Sleep Apnea/CPAP/BIPAP, Thyroid Disorder Additional Past Medical History / Comment(s): USES C-PAP. History of Any Multi-Drug Resistant Organisms: MRSA Year Discovered:: April MDRO Source:: rt [facility] Past Surgical History: Bariatric Surgery, Orthopedic Surgery, Tonsillectomy Additional Past Surgical History / Comment(s): LEFT KNEE REPLACEMENT, RIGHT HIP REPLACEMENT, LAP BAND SURGERY 2003, LAP BAND REMOVAL, EGD Past Anesthesia/Blood Transfusion Reactions: No Reported Reaction Past Psychological History: No Psychological Hx Reported Smoking Status: Never smoker Past Alcohol Use History: None Reported Past Drug Use History: None Reported - Past Family History Mother Family Medical History: No Reported History Father Family Medical History: Cancer Additional Family Medical History / Comment(s): lung Surgical - Exam Vital Signs Temp Pulse Resp BP 97.7 F 67 14 116/81 02/24/17 13:25 02/24/17 13:25 02/24/17 13:25 02/24/17 13:25 - General well developed, no distress - Eyes PERRL - ENT normal pinna - Neck no masses - Respiratory normal expansion - Cardiovascular Rhythm: regular - Abdomen Incision sites clean dry intact. Abdomen: soft, non tender Bariatric Assessment & Plan Plan: The patient status post sleeve gastrectomy. He is doing quite well. He'll follow-up in 2 weeks. Bariatric Checklist Checklist: Plan: Checklist: EGD: 1. Hiatal hernia: 2. H. Pylori: HgbA1c: Vitamin D: Smoking: Never smoker Primary care physician referral: dr olmstead Psychiatry clearance: Cardiology clearance: Sleep study: Diet journal: VTE risk score: VTE risk level: Rehab needs at discharge:
== END | disposition home or self-care (01) ==
LOC: BARWHC3 12:57
PROVIDERS: ATTEND Surgery
DX: Z48.815 Encounter for surgical aftercare following surgery on the digestive system (principal); Z98.84 Bariatric surgery status; G47.30 Sleep apnea, unspecified; Z99.89 Dependence on other enabling machines and devices; Z68.41 Body mass index [BMI] 40.0-44.9, adult
CPT/HCPCS: 97803; 99211

== ENCOUNTER → 2017-03-24 | Outpatient (CLI) | payer BC ==
[2017-03-24 15:29] VITALS: BP 133/73; PULSE 87; RESP 16; TEMP 97.8; BMI 37.5
--- NOTE | 2017-03-24 16:17 | P.HPBAR ---
Bariatric H&P - History & Physicial H&P Date: 03/24/17 History & Physicial: Visit/CC: Sleeve follow-up Patient initial contact: Initial weight: 174.633 kg Initial weight in pounds: 385.00 Height: 6 ft 5 in Initial BMI: 45.6 Last weight: Current weight: 143.845 kg Current weight in pounds: 317.00 Current BMI: 37.5 [place] body weight (based on NIH guidelines): 94.347 kg Excess body weight loss: 38.4% The patient is a 56 year-old M who presents for Bariatric Assessment. Patient will stay for sleeve gastrectomy fall. He is an excellent weight loss. He is struggling somewhat his dietary choices. He states he went out for a screening last Friday. Past Medical History Past Medical History: Atrial Fibrillation, Diabetes Mellitus, Hypertension, Sleep Apnea/CPAP/BIPAP, Thyroid Disorder Additional Past Medical History / Comment(s): USES C-PAP. History of Any Multi-Drug Resistant Organisms: MRSA Year Discovered:: April MDRO Source:: rt [facility] Past Surgical History: Bariatric Surgery, Orthopedic Surgery, Tonsillectomy Additional Past Surgical History / Comment(s): LEFT KNEE REPLACEMENT, RIGHT HIP REPLACEMENT, LAP BAND SURGERY 2003, LAP BAND REMOVAL, EGD Past Anesthesia/Blood Transfusion Reactions: No Reported Reaction Past Psychological History: No Psychological Hx Reported Smoking Status: Never smoker Past Alcohol Use History: None Reported Past Drug Use History: None Reported - Past Family History Mother Family Medical History: No Reported History Father Family Medical History: Cancer Additional Family Medical History / Comment(s): lung Surgical - Exam Vital Signs Temp Pulse Resp BP 97.8 F 87 16 133/73 03/24/17 15:27 03/24/17 15:27 03/24/17 15:27 03/24/17 15:27 - General well developed, no distress - Eyes PERRL - ENT normal pinna - Neck no masses - Respiratory normal expansion - Cardiovascular Rhythm: regular - Abdomen Abdomen: soft, non tender Bariatric Assessment & Plan Plan: Status post sleeve yesterday. Patient doing fairly well. He has had some mild GERD symptoms. His GERD since will be observed. If he still has any persistent GERD symptoms next visit we will order an esophagram. Bariatric Checklist Checklist: Plan: Checklist: EGD: 1. Hiatal hernia: 2. H. Pylori: HgbA1c: Vitamin D: Smoking: Never smoker Primary care physician referral: dr olmstead Psychiatry clearance: Cardiology clearance: Sleep study: Diet journal: VTE risk score: VTE risk level: Rehab needs at discharge:
== END ==
LOC: BARWHC3 14:02
PROVIDERS: ATTEND Surgery
DX: E66.01 Morbid (severe) obesity due to excess calories (principal); K21.9 Gastro-esophageal reflux disease without esophagitis; Z48.815 Encounter for surgical aftercare following surgery on the digestive system
CPT/HCPCS: 97803; 99211

== ENCOUNTER → 2017-06-16 | Outpatient (CLI) | payer BC ==
[2017-06-16 15:15] VITALS: BP 138/79; PULSE 54; RESP 16; TEMP 97.9; BMI 34.0
[2017-06-16 16:14] LABS: CH 32.3; CHCM 32.9; HCT 45.4 % (39.0-53.0); HDW 2.44; HGB 15.1 gm/dL (13.0-17.5); MCH 32.8 pg (25.0-35.0); MCHC 33.3 g/dL (31.0-37.0); MCV 98.6 fL (80.0-100.0); Mean Platelet Volume 9.2; RDW 13.9 % (11.5-15.5); WBC 6.3 k/uL (3.8-10.6)
[2017-06-16 16:32] LABS: ALT 32 U/L (21-72); AST 19 U/L (17-59); Alkaline Phosphatase 130 U/L (38-126); Anion Gap 10 mmol/L; Blood Urea Nitrogen 20 mg/dL (9-20); Calcium 9.4 mg/dL (8.4-10.2); Carbon Dioxide 28 mmol/L (22-30); Chloride 105 mmol/L (98-107); Glucose 98 mg/dL (74-99); Magnesium 1.9 mg/dL (1.6-2.3); Non-African American GFR(MDRD) >60 (>60 ml/min/1.73 sqM); Potassium 4.7 mmol/L (3.5-5.1); Sodium 143 mmol/L (137-145); Total Bilirubin 1.1 mg/dL (0.2-1.3); Total Protein 6.9 g/dL (6.3-8.2)
--- NOTE | 2017-06-16 16:39 | P.HPBAR ---
Bariatric H&P - History & Physicial H&P Date: 06/16/17 History & Physicial: Visit/CC: sleeve f/u (4 month visit) Patient initial contact: Initial weight: 174.633 kg Initial weight in pounds: 385.00 Height: 6 ft 5 in Initial BMI: 45.6 Last weight: 317 Current weight: 129.909 kg Current weight in pounds: 286.40 Current BMI: 34.0 [place] body weight (based on NIH guidelines): 94.347 kg Excess body weight loss: 55.7% The patient is a 56 year-old M who presents for Bariatric Assessment. Patient rents today for sleeve gastrectomy fall. He has had issues with GERD. He's done well with weight loss. His diabetes resolved. Past Medical History Past Medical History: Atrial Fibrillation, Diabetes Mellitus, Hypertension, Sleep Apnea/CPAP/BIPAP, Thyroid Disorder Additional Past Medical History / Comment(s): USES C-PAP. History of Any Multi-Drug Resistant Organisms: MRSA Year Discovered:: April MDRO Source:: rt [facility] Past Surgical History: Bariatric Surgery, Orthopedic Surgery, Tonsillectomy Additional Past Surgical History / Comment(s): LEFT KNEE REPLACEMENT, RIGHT HIP REPLACEMENT, LAP BAND SURGERY 2003, LAP BAND REMOVAL, EGD, cardioversion June 10, 2017 to correct dysrhythmia Past Anesthesia/Blood Transfusion Reactions: No Reported Reaction Past Psychological History: No Psychological Hx Reported Smoking Status: Never smoker Past Alcohol Use History: None Reported Past Drug Use History: None Reported - Past Family History Mother Family Medical History: No Reported History Father Family Medical History: Cancer Additional Family Medical History / Comment(s): lung Surgical - Exam Vital Signs Temp Pulse Resp BP 97.9 F 54 L 16 138/79 06/16/17 15:07 06/16/17 15:07 06/16/17 15:07 06/16/17 15:07 - General well developed, no distress - Eyes PERRL - Abdomen Abdomen: soft, non tender Results - Labs 06/16/17 15:56 06/16/17 15:56 Abnormal Lab Results - Last 24 Hours (Table) 06/16/17 Range/Units 15:56 Alkaline Phosphatase 130 H (38-126) U/L Diabetes panel 06/16/17 Range/Units 15:56 Sodium 143 (137-145) mmol/L Potassium 4.7 (3.5-5.1) mmol/L Chloride 105 (98-107) mmol/L Carbon Dioxide 28 (22-30) mmol/L BUN 20 (9-20) mg/dL Creatinine 1.00 (0.66-1.25) mg/dL Glucose 98 (74-99) mg/dL Calcium 9.4 (8.4-10.2) mg/dL AST 19 (17-59) U/L ALT 32 (21-72) U/L Alkaline Phosphatase 130 H (38-126) U/L Total Protein 6.9 (6.3-8.2) g/dL Albumin 4.2 (3.5-5.0) g/dL Calcium panel 06/16/17 Range/Units 15:56 Calcium 9.4 (8.4-10.2) mg/dL Albumin 4.2 (3.5-5.0) g/dL Pituitary panel 06/16/17 Range/Units 15:56 Sodium 143 (137-145) mmol/L Potassium 4.7 (3.5-5.1) mmol/L Chloride 105 (98-107) mmol/L Carbon Dioxide 28 (22-30) mmol/L BUN 20 (9-20) mg/dL Creatinine 1.00 (0.66-1.25) mg/dL Glucose 98 (74-99) mg/dL Calcium 9.4 (8.4-10.2) mg/dL Adrenal panel 06/16/17 Range/Units 15:56 Sodium 143 (137-145) mmol/L Potassium 4.7 (3.5-5.1) mmol/L Chloride 105 (98-107) mmol/L Carbon Dioxide 28 (22-30) mmol/L BUN 20 (9-20) mg/dL Creatinine 1.00 (0.66-1.25) mg/dL Glucose 98 (74-99) mg/dL Calcium 9.4 (8.4-10.2) mg/dL Total Bilirubin 1.1 (0.2-1.3) mg/dL AST 19 (17-59) U/L ALT 32 (21-72) U/L Alkaline Phosphatase 130 H (38-126) U/L Total Protein 6.9 (6.3-8.2) g/dL Albumin 4.2 (3.5-5.0) g/dL Bariatric Assessment & Plan Plan: Patient's GERD has worsened. He will be placed on omeprazole 40 mg by mouth daily. She'll follow-up in one month. Bariatric Checklist Checklist: Plan: Checklist: EGD: 1. Hiatal hernia: 2. H. Pylori: HgbA1c: Vitamin D: Smoking: Never smoker Primary care physician referral: dr olmstead Psychiatry clearance: Cardiology clearance: Sleep study: Diet journal: VTE risk score: VTE risk level: Rehab needs at discharge:
[2017-06-16 16:41] LABS: Total Iron Binding Capacity 305 ug/dL (261-462)
[2017-06-16 17:21] LABS: Vitamin B12 267 pg/mL (239-931)
[2017-06-16 18:34] LABS: Hemoglobin A1C 6.5 % (4.2-6.1)
== END | disposition home or self-care (01) ==
LOC: BARWHC3 14:30
PROVIDERS: ATTEND Surgery
DX: E66.01 Morbid (severe) obesity due to excess calories (principal); E44.0 Moderate protein-calorie malnutrition; E55.9 Vitamin D deficiency, unspecified; I48.91 Unspecified atrial fibrillation; E11.9 Type 2 diabetes mellitus without complications; I10 Essential (primary) hypertension; Z98.84 Bariatric surgery status
CPT/HCPCS: 80053; 82306; 82525; 82607; 83036; 83550; 83735; 84425; 84443; 84590; 85027; 97803; 99211

== ENCOUNTER → 2018-03-16 | Outpatient (CLI) | payer BC ==
[2018-03-16 14:23] VITALS: BMI 28.8
[2018-03-16 14:48] VITALS: BP 142/88; PULSE 91; RESP 16; TEMP 98.4
[2018-03-16 15:04] LABS: HGB 14.5 gm/dL (13.0-17.5); MCH 29.8 pg (25.0-35.0); MCHC 32.9 g/dL (31.0-37.0); MCV 90.6 fL (80.0-100.0); Mean Platelet Volume 8.4; Platelet Count 177 k/uL (150-450); RBC 4.85 m/uL (4.30-5.90); RDW 13.1 % (11.5-15.5); WBC 5.4 k/uL (3.8-10.6)
[2018-03-16 15:24] LABS: Albumin 4.5 g/dL (3.5-5.0); Calcium 9.6 mg/dL (8.4-10.2); Potassium 4.7 mmol/L (3.5-5.1); Total Bilirubin 1.1 mg/dL (0.2-1.3); Total Protein 7.2 g/dL (6.3-8.2)
[2018-03-17 01:16] LABS: Vitamin D 25 Hydroxy 40.5 ng/mL (30.0-100.0)
[2018-03-17 01:17] LABS: Folate, Serum 9.2 ng/mL
--- NOTE | 2018-04-02 14:25 | P.HPBAR ---
Bariatric H&P - History & Physicial H&P Date: 03/16/18 History & Physicial: Visit/CC: sleeve follow-up Patient initial contact: Initial weight: 174.633 kg Initial weight in pounds: 385.00 Height: 6 ft 5 in Initial BMI: 45.6 Last weight: Current weight: 110.223 kg Current weight in pounds: 243.00 Current BMI: 28.8 [place] body weight (based on NIH guidelines): 94.347 kg Excess body weight loss: 80.2% The patient is a 57 year-old M who presents for Bariatric Assessment.patient presents today for sleeve gastric argastrectomy follow-up. He is doing quite well. He is had excellent weight loss. He has some minimal GERD. Past Medical History Past Medical History: Atrial Fibrillation, Diabetes Mellitus, Hypertension, Sleep Apnea/CPAP/BIPAP, Thyroid Disorder Additional Past Medical History / Comment(s): USES C-PAP. History of Any Multi-Drug Resistant Organisms: MRSA Year Discovered:: April MDRO Source:: rt [facility] Past Surgical History: Bariatric Surgery, Orthopedic Surgery, Tonsillectomy Additional Past Surgical History / Comment(s): LEFT KNEE REPLACEMENT, RIGHT HIP REPLACEMENT, LAP BAND SURGERY 2003, LAP BAND REMOVAL, EGD, cardioversion June 10, 2017 to correct dysrhythmia Past Anesthesia/Blood Transfusion Reactions: No Reported Reaction Past Psychological History: No Psychological Hx Reported Smoking Status: Never smoker Past Alcohol Use History: None Reported Past Drug Use History: None Reported - Past Family History Mother Family Medical History: No Reported History Father Family Medical History: Cancer Additional Family Medical History / Comment(s): lung Surgical - Exam Vital Signs Temp Pulse Resp BP 98.4 F 91 16 142/88 03/16/18 14:42 03/16/18 14:42 03/16/18 14:42 03/16/18 14:42 - General well developed, well nourished - Abdomen Abdomen: soft, non tender Results - Labs 03/16/18 14:48 03/16/18 14:48 Bariatric Assessment & Plan Plan: status post sleeve gastrectomy. Patient is doing quite well. His GERD is minimal and will be observed. He'll follow up in 1 month. Bariatric Checklist Checklist: Plan: Checklist: EGD: 1. Hiatal hernia: 2. H. Pylori: HgbA1c: Vitamin D: Smoking: Never smoker Primary care physician referral: dr olmstead Psychiatry clearance: Cardiology clearance: Sleep study: Diet journal: VTE risk score: VTE risk level: Rehab needs at discharge:
== END | disposition home or self-care (01) ==
LOC: BARWHC3 13:26
PROVIDERS: ATTEND Surgery
DX: Z09 Encounter for follow-up examination after completed treatment for conditions other than malignant neoplasm (principal); K21.9 Gastro-esophageal reflux disease without esophagitis; I48.91 Unspecified atrial fibrillation; E11.9 Type 2 diabetes mellitus without complications; I10 Essential (primary) hypertension; G47.30 Sleep apnea, unspecified; Z99.89 Dependence on other enabling machines and devices; Z98.84 Bariatric surgery status; Z96.653 Presence of artificial knee joint, bilateral
CPT/HCPCS: 36415; 80053; 82306; 82607; 82746; 84134; 84425; 85027; 97803; 99211

== ENCOUNTER → 2024-05-03 | Outpatient (CLI) | payer BC ==
[2024-05-03 08:57] VITALS: PULSE 65; RESP 16; TEMP 97.6; BMI 33.9
[2024-05-03 09:03] VITALS: BP 165/89
--- NOTE | 2024-05-03 17:22 | P.HPBAR ---
Bariatric H&P - History & Physicial H&P Date: 05/03/24 History & Physicial: Visit/CC: Check up, increase in discomfort post eating Patient initial contact: Initial weight: 174.633 kg Initial weight in pounds: 385.00 Height: 6 ft 5 in Initial BMI: 45.6 Last weight: Current weight: 129.773 kg Current weight in pounds: 286.10 Current BMI: 33.9 [place] body weight (based on NIH guidelines): 94.347 kg Excess body weight loss: 55.8% The patient is a 63 year-old M who presents for Bariatric Assessment.patient presents today for sleeve gastric fall. Patient has complaints of some dysphagia states he has pain when he eats. He says the pain is sometimes intermittent. Dpatient states he does have reflux intermittently at night. Past Medical History Past Medical History: Atrial Fibrillation, Diabetes Mellitus, Hypertension, Sleep Apnea/CPAP/BIPAP, Thyroid Disorder Additional Past Medical History / Comment(s): USES C-PAP. History of Any Multi-Drug Resistant Organisms: MRSA Year Discovered:: April MDRO Source:: rt [facility] Past Surgical History: Bariatric Surgery, Orthopedic Surgery, Tonsillectomy Additional Past Surgical History / Comment(s): LEFT KNEE REPLACEMENT, RIGHT HIP REPLACEMENT, Left shoulder rotator cuff repair, LAP BAND SURGERY 2003, LAP BAND REMOVAL, EGD, cardioversion June 10, 2017 to correct dysrhythmia Past Anesthesia/Blood Transfusion Reactions: No Reported Reaction Smoking Status: Never smoker - Past Family History Mother Family Medical History: No Reported History Father Family Medical History: Cancer Additional Family Medical History / Comment(s): lung Surgical - Exam Vital Signs Temp Pulse Resp BP Pulse Ox 97.6 F 65 16 172/90 98 05/03/24 08:32 05/03/24 08:32 05/03/24 08:32 05/03/24 08:32 05/03/24 08:32 - General well developed, well nourished, no distress - Eyes PERRL - ENT normal pinna - Neck no masses - Respiratory normal expansion - Cardiovascular Rhythm: regular - Abdomen Abdomen: soft, non tender Bariatric Assessment & Plan Plan: dysphagia. Patient was set up for an esophagram and EGD. Bariatric Checklist Checklist: Plan: Checklist: EGD: 1. Hiatal hernia: 2. H. Pylori: HgbA1c: Vitamin D: Smoking: Never smoker Primary care physician referral: dr olmstead Psychiatry clearance: Cardiology clearance: Sleep study: Diet journal: VTE risk score: VTE risk level: Rehab needs at discharge:
== END ==
LOC: BARWHC3 08:26
PROVIDERS: ATTEND Surgery
DX: E66.01 Morbid (severe) obesity due to excess calories (principal); R13.10 Dysphagia, unspecified
CPT/HCPCS: 99202; 99211

== ENCOUNTER → 2024-05-10 | Outpatient (CLI) | payer BC ==
--- NOTE | 2024-05-10 13:28 | FL ---
EXAMINATION TYPE: FL barium swallow DATE OF EXAM: 05/10/2024 COMPARISON: None HISTORY: Dysphasia food getting stuck TECHNIQUE: A single contrast Limited UGI study is performed. FINDINGS: Contrast passes from the distal esophagus through the gastric sleeve with moderate hesitancy. No extr avasation of contrast is evident. Esophagus dilates to normal caliber has normal contour and gastroesophageal junction. Gastroesophage al junction opens to normal caliber. There is hesitancy of contrast and fluid entering the gastric sl eeve. There is some persistence of fluid within the distal esophagus before emptying of the stomach. No persistent stenosis however is identified. IMPRESSION: 1. Moderate hesitancy of contrast passing through the gastric sleeve. However, persistent focal steno sis is not identified.
== END | disposition home or self-care (01) ==
LOC: RADUSWWP 11:22
PROVIDERS: ATTEND Surgery
DX: R13.10 Dysphagia, unspecified (principal); Z04.9 Encounter for examination and observation for unspecified reason
CPT/HCPCS: 74220

== ENCOUNTER 2024-05-24 13:16 | Day surgery (SDC) | payer BC ==
[2024-05-24] MEDS ORDERED: LACTATED RINGERS 1,000 ML IV SCH (13:30)
[2024-05-24 13:42] VITALS: TEMP 98.2
[2024-05-24] MEDS: IV FLUID CONTINUATION 1,000 ML IV ONE (13:51)
[2024-05-24 13:52] LABS: Glucose,Whole Blood 94 mg/dL (70-110)
[2024-05-24] MEDS: LACTATED RINGERS 1,000 ML IV SCH (13:53)
[2024-05-24] MEDS ORDERED: PROPOFOL 10 MG/ML 20 ML VIAL IV ONE (16:10)
--- NOTE | 2024-05-24 16:14 | P.GSHP ---
History of Present Illness H&P Date: 05/24/24 Chief Complaint: GERD this a 63-year-old male who presents today for EGD. He's had issues with GERD. Past Medical History Past Medical History: Atrial Fibrillation, Hyperlipidemia, Hypertension Additional Past Medical History / Comment(s): USES C-PAP. History of Any Multi-Drug Resistant Organisms: MRSA Date of last positivie culture/infection: April MDRO Source:: rt [facility] Past Surgical History: Bariatric Surgery, Heart Catheterization, Orthopedic Surgery, Tonsillectomy Additional Past Surgical History / Comment(s): LEFT KNEE REPLACEMENT, RIGHT HIP REPLACEMENT, Left shoulder rotator cuff repair, LAP BAND SURGERY 2003, LAP BAND REMOVAL, EGD, cardioversion June 10, 2017 to correct dysrhythmia, colonoscopy Past Anesthesia/Blood Transfusion Reactions: No Reported Reaction Additional Past Anesthesia/Blood Transfusion Reaction / Comment(s): no blood transfusion Smoking Status: Never smoker - Past Family History Mother Family Medical History: No Reported History Father Family Medical History: Cancer Additional Family Medical History / Comment(s): lung Medications and Allergies Home Medications Medication Instructions Recorded Confirmed Type Rivaroxaban [Xarelto] 20 mg PO DAILY 12/10/16 05/24/24 History lisinopriL [Zestril] 20 mg PO DAILY 03/16/18 05/24/24 History Atorvastatin [Lipitor] 10 mg PO DAILY 05/03/24 05/24/24 History Dofetilide [Tikosyn] 250 mcg PO Q12HR 05/03/24 05/24/24 History Spironolactone 25 mg PO DAILY 05/03/24 05/24/24 History Omeprazole [PriLOSEC] 20 mg PO DAILY 05/20/24 05/24/24 History Allergies Allergy/AdvReac Type Severity Reaction Status Date / Time adhesive tape AdvReac Rash/Hives Verified 05/24/24 13:30 Surgical - Exam Vital Signs Temp Pulse Resp BP Pulse Ox 98.2 F 55 L 18 139/71 98 05/24/24 13:41 05/24/24 13:41 05/24/24 13:41 05/24/24 13:41 05/24/24 13:41 - General well developed, well nourished, no distress - Eyes PERRL - ENT normal pinna - Neck no masses - Respiratory normal expansion - Cardiovascular Rhythm: regular - Abdomen Abdomen: soft, non tender Assessment and Plan Assessment: GERD. We'll perform EGD.
--- NOTE | 2024-05-24 16:21 | P.OP ---
Date of Procedure: 05/24/24 Preoperative Diagnosis: GERD Postoperative Diagnosis: antral gastritis No evidence of sleeve stenosis Procedure(s) Performed: EGD Anesthesia: MAC Surgeon: Vernon Salomon Pathology: other (antrum, esophagus) Condition: stable Disposition: PACU Description of Procedure: the patient's placed on the endoscopy table in the lateral position. She. The gastroscope placed oropharynx passed in the esophagus and stomach. Scope was then placed through the pylorus. The first and second portion of the duodenum appeared normal. Scope summer back the antrum and this appeared mildly inflamed. A biopsies performed. Scope was brought back to the stomach. There is no evidence of any gastric sleeve obstruction. The GE junction was at 40 cm the distal esophagus appeared normal. biopsy the distal esophagus was performed.The proximal esophagus appeared normal. Scope withdrawn for patient.
[2024-05-24 16:41] VITALS: RESP 16
[2024-05-24 16:44] VITALS: BP 134/79; PULSE 52
== END 2024-05-24 17:03 | disposition home or self-care (01) ==
LOC: ORWHC2ENDO 13:16
PROVIDERS: ATTEND Surgery
DX: K21.00 Gastro-esophageal reflux disease with esophagitis, without bleeding (principal); K29.70 Gastritis, unspecified, without bleeding; E78.5 Hyperlipidemia, unspecified; I10 Essential (primary) hypertension; I48.91 Unspecified atrial fibrillation; G47.33 Obstructive sleep apnea (adult) (pediatric); Z86.14 Personal history of Methicillin resistant Staphylococcus aureus infection; Z98.84 Bariatric surgery status; Z79.01 Long term (current) use of anticoagulants; Z79.899 Other long term (current) drug therapy; Z91.09 Other allergy status, other than to drugs and biological substances
CPT/HCPCS: 88305; 43239; J2704